=== PATIENT | male | born 1930 | race Caucasian/White ===

== ENCOUNTER 2017-03-04 14:00 | Day surgery (SDCO) | payer MEDICARE, OTHER ==
[~2017-03-04] VITALS: Ht 172.7 cm; Wt 84.6 kg
[~2017-03-04 14:00] MED LIST: ALLOPURINOL 10100 MG PO; AMARYL1 MG PO; BUMEX1 MG PO; CERTAGEN1 EACH PO; COLACE100 MG PO; COUMADIN 5MG TAB5 MG PO; COUMADIN1 MG PO; COUMADIN7.5 MG PO; DUONEB 2.5-0.5M1 AMP IH; FLOMAX 0.4 MG0.4 MG PO; GLUCOPHAGE500 MG PO; K-DUR20 MEQ PO; LOVASTATIN20 MG PO; MELATONIN3 MG PO; MUCINEX600 MG PO; NEURONTIN300 MG PO; PLAVIX75 MG PO; PRAVACHOL20 MG PO; PRILOSEC20 MG PO; SYMBICORT 1601 PUFFS IH; SYNTHROID75 MCG PO; TYLENOL325 M1 PO; ZAROXOLYN2.5 MG PO; ZESTRIL10 MG PO; ZOFRAN4 MG PO
[2017-03-04 14:35] LABS: BASOPHIL 0.3 % (0-2); EOSINOPHIL 1.2 % (0-7); HCT 39.3 % (42.0-52.0); HGB 13.2 g/dl (13.2-18.0); LYMPHOCYTE 42.1 % (15-48); MCHC 33.6 g/dL (32.0-36.0); MCV 95.2 fL (78.0-100.0); MONOCYTE 9.3 % (0-12); MPV 10.6 fL (6.0-9.5); NEUTROPHIL 47.1 % (41-80); PLT 120 K/uL (150-400); RBC 4.13 M/uL (4.70-6.00); RDW 15.2 % (11.5-14.0); WBC 6.7 K/uL (4.0-10.5)
[2017-03-04 14:47] LABS: PROTHROMBIN TIME 12.8 SECONDS (11.7-14.0); PTT 35.7 SECONDS (23.2-31.4)
[2017-03-04 14:57] LABS: ALBUMIN 4.4 g/dL (3.4-4.8); BILIRUBIN - TOTAL 0.6 mg/dL (0.1-1.0); CREATININE 1.6 mg/dL (0.7-1.2); GLOBULIN (CALCULATION) 2.7 g/dL (2.2-4.2); MAGNESIUM 2.18 mg/dL (1.40-2.10); POTASSIUM 4.8 mmol/L (3.5-5.1); TOTAL PROTEIN 7.1 g/dL (6.4-8.3)
[2017-03-04 15:07] LABS: CKMB 2.56 ng/mL (0.97-4.94); TROPONIN T 0.02 ng/mL
[2017-03-04 21:22] LABS: CKMB 2.21 ng/mL (0.97-4.94); TROPONIN T < 0.010 ng/mL
[2017-03-05 02:33] LABS: BASOPHIL 0.3 % (0-2); EOSINOPHIL 0.9 % (0-7); HCT 34.6 % (42.0-52.0); HGB 11.6 g/dl (13.2-18.0); MCH 31.9 pg (25.0-31.0); MCHC 33.5 g/dL (32.0-36.0); MCV 95.1 fL (78.0-100.0); MONOCYTE 8.9 % (0-12); MPV 10.4 fL (6.0-9.5); NEUTROPHIL 69.9 % (41-80); PLT 113 K/uL (150-400); RBC 3.64 M/uL (4.70-6.00); RDW 15.3 % (11.5-14.0); WBC 9.5 K/uL (4.0-10.5)
[2017-03-05 02:51] LABS: CKMB 1.94 ng/mL (0.97-4.94); TROPONIN T 0.02 ng/mL
[2017-03-05 02:53] LABS: CREATININE 1.9 mg/dL (0.7-1.2); MAGNESIUM 2.04 mg/dL (1.40-2.10); POTASSIUM 4.5 mmol/L (3.5-5.1)
--- NOTE | 2017-03-05 11:28 | NUR ---
REPORT CALLED AT 1050 TO CONRAD BARTLETT AT [facility]. VITALS STABLE AT THIS TIME, NO DISTRESS NOTED, PT DENIES ANY CHEST PAIN AT THIS TIME
--- NOTE | 2017-03-05 12:53 | NUR ---
PT TRANSPORTED VIA EMS TO [facility] AT 1235
== END 2017-03-05 12:35 | disposition other institution (70) ==
LOC: FER 14:00 → FTCU 18:20
PROVIDERS: Emergency Medicine; ADMIT Internal Medicine Nephrology
DX: R07.9 Chest pain, unspecified (principal); I48.2 Chronic atrial fibrillation; I27.2 Other secondary pulmonary hypertension; E78.5 Hyperlipidemia, unspecified; I25.119 Atherosclerotic heart disease of native coronary artery with unspecified angina pectoris; I49.5 Sick sinus syndrome; I50.40 Unspecified combined systolic (congestive) and diastolic (congestive) heart failure; N18.3 Chronic kidney disease, stage 3 (moderate); I13.0 Hypertensive heart and chronic kidney disease with heart failure and stage 1 through stage 4 chronic kidney disease, or unspecified chronic kidney disease; E03.9 Hypothyroidism, unspecified; E11.22 Type 2 diabetes mellitus with diabetic chronic kidney disease; J44.9 Chronic obstructive pulmonary disease, unspecified; Z90.49 Acquired absence of other specified parts of digestive tract; Z98.890 Other specified postprocedural states; Z79.82 Long term (current) use of aspirin; Z95.1 Presence of aortocoronary bypass graft; Z79.899 Other long term (current) drug therapy; Z79.4 Long term (current) use of insulin; Z88.0 Allergy status to penicillin
CPT/HCPCS: 36415; 71010; 80048; 80053; 80061; 82550; 82553; 82962; 83036; 83735; 83874; 83880; 84443; 84484; 85025; 85610; 85730; 93005; G0378